=== PATIENT | female | born 1995 | race Caucasian/White ===

== ENCOUNTER 2017-10-11 15:14 | Emergency (ER) | payer BC, SELFPAY ==
[2017-10-11 15:46] VITALS: BP 132/88; PULSE 98; RESP 18; TEMP 36.7; O2SAT 99; BMI 35.5
[2017-10-11 15:57] LABS: UTC Influenza A Antigen Negative (Negative); UTC Influenza B Antigen Negative (Negative); UTC Strep Screen (Rapid) Negative (Negative)
--- NOTE | 2017-10-11 16:34 | HMH.EDUTC ---
[facility] – [place] Disposition Clinical Impression: Viral upper respiratory illness, Influenza-like illness Disposition: Home, Self-Care Condition on Discharge: Good Instructions: DI for Viral Upper Respiratory Infection -- Adult Additional Instructions: * No sign of bacterial infection. Likely viral. Virus can take 7-14 days to run their course * Monitor Temp. Tylenol every 4 hours as needed no more then 5 times a day or 4000mg in 24 hours and/or ibuprofen every 6 hours as needed no more then 3200mg in 24 hours (as long as your primary care doctor has told you that it is ok to take both) for fever/aches/pain. ER if fever no less than 101 despite tylenol and ibuprofen * Encourage fluids, water, gatorade, powerade, pedialyte if /toddler/child * warm salt water gargles * warm fluids * sore throat lozenges * sleep elevated * humidifier/vaporizer * Bromfed may cause drowsiness. Know how it effects you (or your child) before driving, caring for small children, or sending your child to school. No other antihistamines/allergy/sinus medications while taking bromfed. You can still take tylenol and/or ibuprofen * * Your throat swab was sent for culture. Those results are typically sent to your primary care. Be sure to follow up in 2-3 days if no improvement so they can review those results and treat if necessary. If you don't have primary care, I recommend you get one but in the mean time, you will have to return to a walk in clinic. Follow up with primary care IMMEDIATELY for new or worsening symptoms OR no noticeable improvement over the next 48-72 hours. 911 for difficulty breathing or swallowing. Prescriptions: Brompheniramine/Pseudoephed/Dm [Bromfed DM Cough Syrup 5mL] 10 ml PO QID PRN #240 ml PRN Reason: Cough Forms: Work/School Release Time of Disposition: 16:47 Medical Decision Making Vital Signs: 10/11/17 15:46 Temperature 98.0 F Temperature Source Temporal Artery Scan Pulse Rate [Right Radial] 98 H Respiratory Rate 18 Blood Pressure [Right Arm] 132/88 Blood Pressure Mean [Right Arm] 102 Blood Pressure Source [Right Arm] Automatic Cuff Blood Pressure Position [Right Arm] Sitting 02 Sat by Pulse Oximetry 99 Oxygen Delivery Method Room Air - Lab Data Lab results reviewed: Yes: I reviewed the patient's lab results. Lab Results 10/11/17 15:56: Influenza Type A Ag Negative, Influenza Type B Ag Negative, Strep Scn Rapid Clinic Negative Orders (Tests/Meds): ORDERS Category Date Time Status Strep Screen Confirmation Stat Micro 10/11/17 15:56 Received - Sudheer Inquiry Pt receiving controlled substance: No [facility] [place] HPI - General Stated complaint: sinus ,cough Time Seen by Provider: 10/11/17 16:35 Mode of Arrival: Family Vehicle Source of Information: Patient Limitations: No Limitations Description of Symptoms (Recalled from Triage Doc. by RN): PT C/O FLU LIKE SYMPTOMS SINCE WEDNESDAY. HEENT Symptoms (Recalled from RN notes): Yes (FLU LIKE) Resp Symptoms (Recalled from RN notes): Yes (FLU LIKE) Skin Symptoms (Recalled from RN notes): No MS Symptoms (Recalled from RN notes): No Functional Status (Recalled from RN notes): NA - History of Present Illness Provider Complaint: Started w/ scratchy throat Wednesday, 5 days ago. [place] fine on then felt feverish, aches, chills, scratchy throat, thick yellow nasal drainage Wednesday. Nonprod cough w/ chest congestion started Wednesday. No consistent treatment but has tried mucinex, mucinex DM, chloratabs, claritin and claritin DM. Mom with similiar symptoms recently. - Related Data Home Medications Medication Instructions Recorded Confirmed Loratadine/Pseudoephedrine 1 each PO DAILY 10/11/17 10/11/17 [Loratadine-D 24Hr Tablet] Previous Rx's Medication Instructions Recorded Brompheniramine/Pseudoephed/Dm 10 ml PO QID PRN #240 ml 10/11/17 [Bromfed DM Cough Syrup 5mL] Allergies Allergy/AdvReac Type Severity Reaction Status Declan
--- NOTE | 2017-10-11 16:41 | ED_ITS ---
[facility] [place] Disposition Clinical Impression: Viral upper respiratory illness, Influenza-like illness Disposition: Home, Self-Care Condition on Discharge: Good Instructions: DI for Viral Upper Respiratory Infection -- Adult Additional Instructions: * No sign of bacterial infection. Likely viral. Virus can take 7-14 days to run their course * Monitor Temp. Tylenol every 4 hours as needed no more then 5 times a day or 4000mg in 24 hours and/or ibuprofen every 6 hours as needed no more then 3200mg in 24 hours (as long as your primary care doctor has told you that it is ok to take both) for fever/aches/pain. ER if fever no less than 101 despite tylenol and ibuprofen * Encourage fluids, water, gatorade, powerade, pedialyte if /toddler/ child * warm salt water gargles * warm fluids * sore throat lozenges * sleep elevated * humidifier/vaporizer * Bromfed may cause drowsiness. Know how it effects you (or your child) before driving, caring for small children, or sending your child to school. No other antihistamines/allergy/sinus medications while taking bromfed. You can still take tylenol and/or ibuprofen * * Your throat swab was sent for culture. Those results are typically sent to your primary care. Be sure to follow up in 2-3 days if no improvement so they can review those results and treat if necessary. If you don't have primary care , I recommend you get one but in the mean time, you will have to return to a walk in clinic. Follow up with primary care IMMEDIATELY for new or worsening symptoms OR no noticeable improvement over the next 48-72 hours. 911 for difficulty breathing or swallowing. Prescriptions: Brompheniramine/Pseudoephed/Dm [Bromfed DM Cough Syrup 5mL] 10 ml PO QID PRN # 240 ml PRN Reason: Cough Forms: Work/School Release Time of Disposition: 16:47 Medical Decision Making Vital Signs: 10/11/17 15:46 Temperature 98.0 F Temperature Source Temporal Artery Scan Pulse Rate [Right Radial] 98 H Respiratory Rate 18 Blood Pressure [Right Arm] 132/88 Blood Pressure Mean [Right Arm] 102 Blood Pressure Source [Right Arm] Automatic Cuff Blood Pressure Position [Right Arm] Sitting 02 Sat by Pulse Oximetry 99 Oxygen Delivery Method Room Air - Lab Data Lab results reviewed: Yes: I reviewed the patient's lab results. Lab Results 10/11/17 15:56: Influenza Type A Ag Negative, Influenza Type B Ag Negative, Strep Scn Rapid Clinic Negative Orders (Tests/Meds): ORDERS Category Date Time Status Strep Screen Confirmation Stat Micro 10/11/17 15:56 Received - Sudheer Inquiry Pt receiving controlled substance: No [facility] [place] HPI - General Stated complaint: sinus ,cough Time Seen by Provider: 10/11/17 16:35 Mode of Arrival: Family Vehicle Source of Information: Patient Limitations: No Limitations Description of Symptoms (Recalled from Triage Doc. by RN): PT C/O FLU LIKE SYMPTOMS SINCE WEDNESDAY. HEENT Symptoms (Recalled from RN notes): Yes (FLU LIKE) Resp Symptoms (Recalled from RN notes): Yes (FLU LIKE) Skin Symptoms (Recalled from RN notes): No MS Symptoms (Recalled from RN notes): No Functional Status (Recalled from RN notes): NA - History of Present Illness Provider Complaint: Started w/ scratchy throat Wednesday, 5 days ago. [place] fine on then felt feverish, aches, chills, scratchy throat, thick yellow nasal drainage Wednesday. Nonprod cough w/ chest congestion started Wednesday. No consi
[2017-10-11 16:50] VITALS: BP 130/76; PULSE 86; RESP 18; TEMP 36.8; O2SAT 100
== END 2017-10-11 16:51 | disposition home or self-care (01) ==
PROVIDERS: Emergency Provider Nurse Practitioner Family
DX: J06.9 Acute upper respiratory infection, unspecified (principal); F17.210 Nicotine dependence, cigarettes, uncomplicated
CPT/HCPCS: 87804; 87880; 99202

== ENCOUNTER 2017-10-13 15:01 | Emergency (ER) | payer BC, SELFPAY ==
[2017-10-13 15:40] VITALS: BP 133/90; PULSE 93; RESP 20; TEMP 36.8; O2SAT 98; BMI 35.5
--- NOTE | 2017-10-13 15:51 | HMH.EDUTC ---
[facility] – [place] Disposition Clinical Impression: Upper respiratory infection Qualifiers: URI type: unspecified URI Qualified Code(s): J06.9 - Acute upper respiratory infection, unspecified Disposition: Home, Self-Care Condition on Discharge: Good Instructions: Cough, DI for Cough -- Adult, Sore Throat, DI for Nasal Congestion Additional Instructions: * Monitor Temp. Tylenol and/or Ibuprofen as needed. ER if fever is no less than 101 despite alternating Tylenol and Ibuprofen * Encourage fluids, water, Gatorade, powerade, pedialyte if /toddler/or child * Warm salt water gargles for throat irritation *Warm fluids *Sore throat lozenges *Sleep elevated *humidifier or vaporizer Lots of rest Increase fluids, water, Gatorade, powerade Follow up IMMEDIATELY for new or worsening of symptoms OR no noticeable improvement over the next 48-72 hours. 911 immediately for any life threatening symptoms such as chest pain or difficulty breathing Prescriptions: Azithromycin [Z-Rodrigo 250mg Tab] 250 mg PO UD DOSE PK #6 tab Benzonatate [Tessalon Perle 100mg Cap] 100 mg PO TID PRN #30 cap PRN Reason: Cough Fluticasone Propionate [Flonase 50mcg nasal spray 16gm] 2 spr NS DAILY #1 bottle Guaifenesin/Pseudoephedrne HCl [Mucinex D ER 1,200-120 mg Tab] 1 each PO Q12H #10 tab.er.12h predniSONE [Prednisone 20mg Tab] 20 mg PO BID #10 tab Time of Disposition: 16:49 Medical Decision Making - Medical Records Medical records reviewed: Yes: I reviewed the patient's medical records. Vital Signs: 10/13/17 15:40 10/13/17 16:34 Temperature 98.2 F 98 F Temperature Source Temporal Artery Scan Pulse Rate 88 Pulse Rate [Right] 93 H Respiratory Rate 20 18 Blood Pressure 132/88 Blood Pressure [Right Arm] 133/90 Blood Pressure Mean [Right Arm] 104 Blood Pressure Position [Right Arm] Sitting 02 Sat by Pulse Oximetry 98 Oxygen Delivery Method Room Air - Lab Data Lab results reviewed: Yes: I reviewed the patient's lab results. Lab Results 10/13/17 15:56: Influenza Type A Ag Negative, Influenza Type B Ag Negative, Strep Scn Rapid Clinic Negative Orders (Tests/Meds): ORDERS Category Date Time Status CXR 2 view (NOT portable) [XR chest 2V] Urgent Exams 10/13/17 15:52 Taken Strep Screen Confirmation Stat Micro 10/13/17 15:56 Received - Radiology Data #1 Image(s): Chest Image Reviewed: Yes I reviewed the patient's radiology image w/the ED provider Preliminary Findings: Normal/NAD - Sudheer Inquiry Pt receiving controlled substance: No Sudheer was queried for this patient: No - Reevaluation(s) Time: 16:45 Reevaluation #1: Patient advised of xray reading, Patient state that there is no changes or no worsening of symptoms [facility] [place] HPI - General Stated complaint: SOA Mode of Arrival: Ambulatory Source of Information: Patient Limitations: No Limitations Description of Symptoms (Recalled from Triage Doc. by RN): CONGESTION X1 WK, SEEN HERE RECENTLY HEENT Symptoms (Recalled from RN notes): Yes Resp Symptoms (Recalled from RN notes): No Skin Symptoms (Recalled from RN notes): No MS Symptoms (Recalled from RN notes): No Functional Status (Recalled from RN notes): N - History of Present Illness Provider Complaint: Patient state that she has been having sinus and chest congestion for over a week now State that she feels like she cant breath out of her nose State that she hasn't felt well for about a week now that has continued to get worse State that she was seen here a couple of days ago and diagnosed with a virus but since then she noticed that her drainage from her nose went from clear to thick yellowish green and cough has continued to get worse - Related Data Home Medications Medication Instructions Recorded Confirmed Loratadine/Pseudoephedrine 1 each PO DAILY 10/11/17 10/11/17 [Loratadine-D 24Hr Tablet] Previous Rx's Medication Instructions Recorded Brompheniramine/Pseudoephed/Dm 10 ml PO QID PRN #2
--- NOTE | 2017-10-13 15:52 | XR_ITS ---
XR chest 2V HISTORY: ITS.REASON: COUGH ORDERING PHYSICIAN: Nancy Obrien PATIENT AGE: 22 years COMPARISON: None available FINDINGS: The cardiomediastinal silhouette and pulmonary vascularity are within normal limits. The lungs are clear without infiltrates, suspicious nodules, or pleural effusions. No acute bony abnormalities. IMPRESSION: Negative chest, no acute finding
--- NOTE | 2017-10-13 15:55 | ED_ITS ---
[facility] [place] Disposition Clinical Impression: Upper respiratory infection Qualifiers: URI type: unspecified URI Qualified Code(s): J06.9 - Acute upper respiratory infection, unspecified Disposition: Home, Self-Care Condition on Discharge: Good Instructions: Cough, DI for Cough -- Adult, Sore Throat, DI for Nasal Congestion Additional Instructions: * Monitor Temp. Tylenol and/or Ibuprofen as needed. ER if fever is no less than 101 despite alternating Tylenol and Ibuprofen * Encourage fluids, water, Gatorade, powerade, pedialyte if infant/toddler/or child * Warm salt water gargles for throat irritation *Warm fluids *Sore throat lozenges *Sleep elevated *humidifier or vaporizer Lots of rest Increase fluids, water, Gatorade, powerade Follow up IMMEDIATELY for new or worsening of symptoms OR no noticeable improvement over the next 48-72 hours. 911 immediately for any life threatening symptoms such as chest pain or difficulty breathing Prescriptions: Azithromycin [Z-Rodrigo 250mg Tab] 250 mg PO UD DOSE PK #6 tab Benzonatate [Tessalon Perle 100mg Cap] 100 mg PO TID PRN #30 cap PRN Reason: Cough Fluticasone Propionate [Flonase 50mcg nasal spray 16gm] 2 spr NS DAILY #1 bottle Guaifenesin/Pseudoephedrne HCl [Mucinex D ER 1,200-120 mg Tab] 1 each PO Q12H # 10 tab.er.12h predniSONE [Prednisone 20mg Tab] 20 mg PO BID #10 tab Time of Disposition: 16:49 Medical Decision Making - Medical Records Medical records reviewed: Yes: I reviewed the patient's medical records. Vital Signs: 10/13/17 15:40 10/13/17 16:34 Temperature 98.2 F 98 F Temperature Source Temporal Artery Scan Pulse Rate 88 Pulse Rate [Right] 93 H Respiratory Rate 20 18 Blood Pressure 132/88 Blood Pressure [Right Arm] 133/90 Blood Pressure Mean [Right Arm] 104 Blood Pressure Position [Right Arm] Sitting 02 Sat by Pulse Oximetry 98 Oxygen Delivery Method Room Air - Lab Data Lab results reviewed: Yes: I reviewed the patient's lab results. Lab Results 10/13/17 15:56: Influenza Type A Ag Negative, Influenza Type B Ag Negative, Strep Scn Rapid Clinic Negative Orders (Tests/Meds): ORDERS Category Date Time Status CXR 2 view (NOT portable) [XR chest 2V] Urgent Exams 10/13/17 15:52 Taken Strep Screen Confirmation Stat Micro 10/13/17 15:56 Received - Radiology Data #1 Image(s): Chest Image Reviewed: Yes I reviewed the patient's radiology image w/the ED provider Preliminary Findings: Normal/NAD - Sudheer Inquiry Pt receiving controlled substance: No Sudheer was queried for this patient: No - Reevaluation(s) Time: 16:45 Reevaluation #1: Patient advised of xray reading, Patient state that there is no changes or no worsening of symptoms [facility] [place] HPI - General Stated complaint: SOA Mode of Arrival: Ambulatory Source of Information: Patient Limitations: No Limitations Description of Symptoms (Recalled from Triage Doc. by RN): CONGESTION X1 WK, SEEN HERE RECENTLY HEENT Symptoms (Recalled from RN notes): Yes Resp Symptoms (Recalled from RN notes): No Skin Symptoms (Recalled from RN notes): No MS Symptoms (Recalled from RN notes): No Functional Status (Recalled from RN notes): N - History of Present Illness Provider Complaint: Patient state that she has been having sinus and chest congestion for over a week now State that she feels like she cant breath out of her nose
[2017-10-13 16:29] LABS: UTC Influenza A Antigen Negative (Negative); UTC Influenza B Antigen Negative (Negative); UTC Strep Screen (Rapid) Negative (Negative)
[2017-10-13 16:34] VITALS: BP 132/88; PULSE 88; RESP 18; TEMP 36.6
== END 2017-10-13 16:57 | disposition home or self-care (01) ==
PROVIDERS: Emergency Provider Nurse Practitioner
DX: J06.9 Acute upper respiratory infection, unspecified (principal); R06.02 Shortness of breath
CPT/HCPCS: 71046; 87804; 87880; 99202